=== PATIENT | female | born 1945 | race Caucasian/White ===

== ENCOUNTER 2017-01-24 14:31 | Outpatient (CLI) | payer MEDICARE, OTHER ==
--- NOTE | 2017-01-24 16:57 | RAD ---
RIGHT FOOT 3 VIEWS: Date: 01/24/17 HISTORY: Fall, right foot pain. FINDINGS/IMPRESSION: There is a nondisplaced fracture involving the neck of the third metatarsal. An old, healed fracture of the shaft of the fifth metatarsal is seen. POS: OFF
== END 2017-01-24 14:32 | disposition home or self-care (01) ==
LOC: MADRAD 14:31
PROVIDERS: ATTEND Family Medicine
DX: M79.671 Pain in right foot (principal); N39.0 Urinary tract infection, site not specified; S92.334A Nondisplaced fracture of third metatarsal bone, right foot, initial encounter for closed fracture; S92.351D Displaced fracture of fifth metatarsal bone, right foot, subsequent encounter for fracture with routine healing
CPT/HCPCS: 87086

== ENCOUNTER 2017-02-08 13:34 | Outpatient (CLI) | payer MEDICARE, OTHER ==
[2017-02-08 15:47] LABS: Clarity Slightly Cloudy (Clear); Leukocyte Small (Negative); Nitrite Negative (Negative); Protein, Urine (Dipstick) 30 mg/dL (Neg-Trace)
[2017-02-08 15:48] LABS: Bilirubin Negative (Negative); Blood, Urine Small (Negative); Glucose, Urine (Dipstick) Negative (Negative); Squamous Epithelial 0-3 HPF (0-3)
[2017-02-08 15:49] LABS: Bacteria/HPF 1+ HPF (None Seen)
== END 2017-02-08 13:35 | disposition home or self-care (01) ==
LOC: MADLABBHPM 13:34
PROVIDERS: ATTEND Family Medicine
DX: N39.0 Urinary tract infection, site not specified (principal)
CPT/HCPCS: 36415; 81001; 87086

== ENCOUNTER 2017-05-09 10:14 | Outpatient (CLI) | payer MEDICARE, OTHER ==
[2017-05-09 11:14] LABS: Hemoglobin A1c 5.6 % (4.0-6.0)
== END 2017-05-09 10:15 | disposition home or self-care (01) ==
LOC: MADLABBHPM 10:14
PROVIDERS: ATTEND Family Medicine
DX: E11.9 Type 2 diabetes mellitus without complications (principal); R30.0 Dysuria
CPT/HCPCS: 36415; 83036; 87086

== ENCOUNTER 2018-02-14 15:43 | Outpatient (CLI) | payer MEDICARE, OTHER ==
--- NOTE | 2018-02-14 16:06 | RAD ---
SINGLE VIEW OF THE ABDOMEN: 02/14/18 COMPARISON: None. HISTORY: Urinary calculi. FINDINGS: Single view of the abdomen shows a nonspecific, nonobstructed bowel gas pattern. Cholecystectomy clip s are seen. There is a calculus projecting over the left abdomen which likely represents a phlebolith . No obvious calcifications are seen projecting over either renal shadow or along the course of the u reters. IMPRESSION: No urinary collecting system calculi identified. POS: ANNABELLA
--- NOTE | 2018-02-14 16:12 | RAD ---
THREE VIEWS OF THE LEFT FOOT: 02/14/18 COMPARISON: None. HISTORY: Left foot pain and swelling. FINDINGS: Three views of the left foot shows no evidence of acute fracture or dislocation. Mild soft tissue swe lling is seen. No degenerative changes are present. IMPRESSION: No evidence of acute osseous abnormality. POS: CHRISTIAN
== END 2018-02-14 15:44 | disposition home or self-care (01) ==
LOC: MADRAD 15:43
PROVIDERS: ATTEND Urology
DX: M79.89 Other specified soft tissue disorders (principal)
CPT/HCPCS: 74018

== ENCOUNTER 2019-01-09 11:46 | Outpatient (CLI) | payer MEDICARE, OTHER ==
--- NOTE | 2019-01-09 12:46 | CT ---
Exam: Lumbar spine CT scan without IV contrast: HISTORY: Evaluate compression fracture: Heterogeneous bony demineralization. Generalized disc osteophytosis and facet arthrosis. Mild vertebral height loss of T9 and T11 vertebral bodies which have more of an old appearance. Acute appearing greater than 50% vertical height loss compression fracture of L1 with mild retropulsion. No overt posterior element fracture. Multilevel variable severity canal, lateral recess, and foramina l stenosis. IMPRESSION: Greater than 50% acute vertical height loss L1 compression fracture with mild retropulsion. More janusz te appearing T9 and T11 mild compression fractures. Bony demineralization. Lumbar spondylosis.
== END 2019-01-09 11:47 | disposition home or self-care (01) ==
LOC: MADCT 11:46
PROVIDERS: ATTEND Family Medicine
DX: S32.019A Unspecified fracture of first lumbar vertebra, initial encounter for closed fracture (principal); M47.816 Spondylosis without myelopathy or radiculopathy, lumbar region
CPT/HCPCS: 72131

== ENCOUNTER 2019-02-06 12:59 | Outpatient (CLI) | payer MEDICARE, OTHER ==
[2019-02-06 13:10] LABS: Bilirubin Negative (Negative); Blood, Urine Negative (Negative); Clarity Clear (Clear); Glucose, Urine (Dipstick) Negative (Negative); Leukocyte Negative (Negative); Nitrite Negative (Negative); Protein, Urine (Dipstick) Negative (Neg-Trace); Specific Gravity, Urine 1.025 (1.005-1.030); Urobilinogen 0.2 mg/dL (0.2-1.0)
[2019-02-06 13:41] LABS: RBC/HPF 0-3 HPF (0-3)
[2019-02-06 13:51] LABS: Bacteria/HPF Rare-Few HPF (None Seen); WBC/HPF 0-3 HPF (0-3)
== END 2019-02-06 13:00 | disposition home or self-care (01) ==
LOC: MADLAB 12:59
PROVIDERS: ATTEND Urology
DX: N39.0 Urinary tract infection, site not specified (principal)
CPT/HCPCS: 81001; 87086

== ENCOUNTER 2019-06-04 13:26 | Outpatient (CLI) | payer MEDICARE, OTHER ==
--- NOTE | 2019-06-04 14:11 | RAD ---
CHEST PA AND LATERAL: Date: 06/04/19 HISTORY: Cough. COMPARISON: 03/27/19. FINDINGS: There are extensive bilateral linear and interstitial and reticulonodular parenchymal changes through out both lungs, particularly in the upper lung zones. Given minimal differences in technique, these p robably are not significantly changed from the prior study. No confluent pneumonia, overt edema, or p leural effusion. Borderline size heart. IMPRESSION: Extensive bilateral interstitial and reticulonodular parenchymal changes consistent with underlying n onspecific interstitial fibrosis. No evidence for new confluent process. Atherosclerosis of aorta wit h ectasia. If patient has persistent or worsening acute symptoms, consider short-term follow-up. POS: TPC
== END 2019-06-04 13:27 | disposition home or self-care (01) ==
LOC: MADRAD 13:26
PROVIDERS: ATTEND Family Medicine
DX: R05 Cough (principal); R91.8 Other nonspecific abnormal finding of lung field
CPT/HCPCS: 71046

== ENCOUNTER 2019-08-22 20:04 | Outpatient (CLI) | payer MEDICARE, OTHER | END 2019-08-22 20:05 | disposition home or self-care (01) | LOC: MADLAB 20:04 | PROVIDERS: ATTEND Family Medicine | DX: N30.00 Acute cystitis without hematuria (principal) | CPT/HCPCS: 87077; 87086 ==

== ENCOUNTER 2019-08-29 16:51 | Outpatient (CLI) | payer MEDICARE, OTHER ==
--- NOTE | 2019-08-29 17:26 | RAD ---
EXAM: Chest Two Views 08/29/2019 5:23 PM HISTORY: Acute bronchitis COMPARISON: Chest radiograph dated March 27, 2019 FINDINGS: Heart: Stable mild cardiomegaly Pulmonary vessels: Normal. Costophrenic angles: Clear. Lungs: Chronic lung changes are stable. No airspace consolidation is present. Pneumothorax: None. Osseous structures:Stable mild wedge compression abnormalities of the mid to lower thoracic spine. Di ffuse osteopenia. There is scattered degenerative and osteoarthritic change present. Additional findings: None. IMPRESSION: Stable chronic lung changes and mild cardiomegaly.
== END 2019-08-29 16:52 | disposition home or self-care (01) ==
LOC: MADRAD 16:51
PROVIDERS: ATTEND Family Medicine
DX: J20.9 Acute bronchitis, unspecified (principal); I51.7 Cardiomegaly; J98.4 Other disorders of lung
CPT/HCPCS: 71046